=== PATIENT | male | born 1990 | race Hispanic/Latino ===

== ENCOUNTER → 2022-02-04 | Day surgery (SDC) | payer OTHER ==
[~2022-02-04] MED LIST: ALL DAY ALLERGY10 MG PO; MULTI-VITAMIN1 EACH PO; VENOFER100 MG/5 M PO
[2022-02-04 09:40] VITALS: BP 132/85
== END | disposition home or self-care (01) ==
LOC: OR 06:29
PROVIDERS: ATTEND Internal Medicine Gastroenterology
DX: D50.9 Iron deficiency anemia, unspecified (principal); K29.50 Unspecified chronic gastritis without bleeding; K22.70 Barrett's esophagus without dysplasia; K55.20 Angiodysplasia of colon without hemorrhage; K21.00 Gastro-esophageal reflux disease with esophagitis, without bleeding; K44.9 Diaphragmatic hernia without obstruction or gangrene; K57.30 Diverticulosis of large intestine without perforation or abscess without bleeding; K64.8 Other hemorrhoids; R06.83 Snoring; Z87.891 Personal history of nicotine dependence
CPT/HCPCS: 43239; 45378; 88305; 88312; 88342